=== PATIENT | female | born 1985 ===

== ENCOUNTER 2022-03-14 19:49 | Observation (INO) | payer BC ==
[~2022-03-14] VITALS: Ht 154.9 cm; Wt 69.9 kg
[~2022-03-14 19:49] MED LIST: Celexa40 MG PO; TRINESSA LO TA1 EACH PO
[2022-03-14 20:50] LABS: BASOPHILS ABSOLUTE AUTO 0.08 K/mm3 (0.00-0.23); BASOPHILS PERCENT AUTO 0 % (0-2); EOSINOPHILS ABSOLUTE AUTO 0.03 K/mm3 (0.00-0.68); EOSINOPHILS PERCENT AUTO 0 % (0-6); Hemoglobin 13.7 g/dL (11.5-16.0); IMMATURE GRAN ABSOLUTE AUTO 0.07 K/mm3 (0.00-0.10); IMMATURE GRAN PERCENT AUTO 0 % (0-1); LYMPHOCYTES ABSOLUTE AUTO 2.08 K/mm3 (0.84-5.20); LYMPHOCYTES PERCENT AUTO 12 % (21-46); MONOCYTES ABSOLUTE AUTO 0.72 K/mm3 (0.16-1.47); MONOCYTES PERCENT AUTO 4 % (4-13); Mean Corpuscular HGB 31.8 pg (26.0-34.0); Mean Corpuscular HGB Conc 34.3 g/dL (31.5-36.5); Mean Corpuscular Volume 93 fL (80-100); Mean Platelet Volume 11.9 fL (9.1-12.4); NEUTROPHILS PERCENT AUTO 84 % (41-73); Platelet Count 258 K/mm3 (150-400); RDW Coefficient Variation 11.5 % (11.7-14.2); RDW Standard Deviation 39.2 fL (35.1-46.3); Red Blood Cell Count 4.31 M/mm3 (3.80-5.20); White Blood Cell Count 18.08 K/mm3 (4.00-11.30)
[2022-03-14 21:27] LABS: Source, Urine Clean Catch
[2022-03-14 21:30] LABS: Albumin, Blood 3.9 g/dL (3.4-5.0); Bilirubin, Total 0.4 mg/dL (0.1-1.0); Bun/Creatinine Ratio 17.6 (12.0-20.0); Calcium, Blood 8.8 mg/dL (8.5-10.1); Creatinine, Blood 0.51 mg/dL (0.40-1.00); Globulin, Blood 3.9 g/dL (2.2-4.0); Potassium, Blood 3.6 mmol/L (3.5-5.5); Total Protein, Blood 7.8 g/dL (6.4-8.2)
[2022-03-14 21:54] LABS: Bilirubin, Urine Neg (Neg); Blood, Urine 5+ (Neg); Glucose Qualitative, Urine Neg (Neg); Ketones, Urine 4+ (Neg); Leukocyte Esterase, Urine Neg (Neg); Nitrite, Urine Neg (Neg); Protein, Urine 1+ (Neg); Urobilinogen, Urine NORM (Normal)
[2022-03-14 22:19] LABS: Appearance, Urine Hazy (Clear); Color, Urine Yellow (P-Yellow)
[2022-03-14 22:20] LABS: Bacteria Few /hpf; Mucus Light (0-Heavy); Squamous Epithelial Cells Few /hpf (Few); White Blood Cells, Urine 0-2 /hpf (0-5)
[2022-03-15] MEDS ORDERED: ESCI20 PO (01:08)
[2022-03-15] MEDS ORDERED: TRI-LO-SPRINTE1 EACH PO (01:09)
[2022-03-15] MEDS ORDERED: BUSPIRONE HCL10 M6 PO (01:10)
--- NOTE | 2022-03-15 02:07 | NUR ---
NEW ADMIT FROM ED. A&O X 4. VSS. DENIES PAIN AT THIS TIME, WAS GIVEN TORADOL IN THE ED. INDEPENDENT IN ROOM. NPO AT MIDNIGHT FOR SURGERY IN AM.
--- NOTE | 2022-03-15 10:09 | NUR ---
RN NOTE MS WRIGHT IS OX4. C/O 06/02 MID UPPER ABDOMINAL PAIN THIS AM, TORADOL GIVEN AND SHE IS NOW SLEEPING. AWAITING OR TODAY. NPO, IVF STARTED AT 125CC/HR. NO NAUSEA. BED LOW, CALL LIGHT IN REACH.
--- NOTE | 2022-03-15 16:18 | NUR ---
PT BROUGHT FROM FLOOR TO DAY SURGERY FOR PROCEDURE.
--- NOTE | 2022-03-15 16:36 | NUR ---
SHIFT SUMMARY MS WRIGHT HAS BEEN NPO AWAITING OR. PAIN CONTROLLED WITH IV TORADOL X 1 SO FAR THIS SHIFT. TO O.R. AT 1610HRS. NO NAUSEA OR VOMITING TODAY. PRESENT AT TIME OF TRANSFER TO OR. BED LOW, CALL LIGHT IN REACH.
[2022-03-16] MEDS ORDERED: Norco 5-325 Ta1 EACH PO (12:04)
--- NOTE | 2022-03-16 13:00 | NUR ---
DISCHARGE PATIENT TRANSPORTED VIA WHEELCHAIR TO PRIVATE VEHICLE. DISCHARGE INSTRUCTIONS EXPLAINED TO PATIENT. PATIENT STATED UNDERSTANDING. PACKET SENT WITH PATIENT. HARD SCRIPT FOR NORCO SENT WITH PATIENT. BELONGINGS SENT WITH PATIENT. IV REMOVED WITHOUT DIFFICULTY. PATIENT TOLERATING PO INTAKE. MEDICATIONS FAXED TO PREFERRED PHARMACY. DR. GARCIA OFFICE TO CALL PATIENT TO SCHEDULE FOLLOW UP.
--- NOTE | 2022-03-20 10:30 | NUR ---
03/20/22 1030 Fartun De La Garza VERIFICATIONS: EDIT CHART.
== END 2022-03-16 12:31 | disposition home or self-care (01) ==
LOC: ER 19:49 → MEDS 22:47
PROVIDERS: Student in an Organized Health Care Education/Training Program; ADMIT Surgery
DX: K80.12 Calculus of gallbladder with acute and chronic cholecystitis without obstruction (principal); Z85.72 Personal history of non-Hodgkin lymphomas
CPT/HCPCS: 36415; 74300; 76705; 80053; 81001; 81025; 85025; 96361; 96365; 96366; 96375; 96376; A9270; C1729; G0378; J1100; J1885; J2250; J2405; J2543; J2704; J2795; J3010; J7040; J7120